=== PATIENT | male | born 1990 | race African-American/Black ===

== ENCOUNTER 2022-07-01 18:46 | Emergency (ER) | payer SELFPAY ==
--- NOTE | 2022-07-01 19:12 | NUR ---
Called to be triaged but was not present in the waiting room or outside of ER.
--- NOTE | 2022-07-01 19:36 | NUR ---
Patient was called to be triaged but was not present in the waiting room or outside of ER.
--- NOTE | 2022-07-01 19:50 | NUR ---
patient was called but not present. Patient was not triaged or seen by [facility].
== END 2022-07-01 19:51 | disposition left against medical advice (07) ==
LOC: ER 18:52
DX: Z53.21 Procedure and treatment not carried out due to patient leaving prior to being seen by health care provider (principal)